=== PATIENT | male | born 1965 | race Caucasian/White ===

== ENCOUNTER 2018-10-04 04:30 | Inpatient (IN) ==
[2018-10-04 05:25] LABS: Basophils # (auto) 0.06 K/uL (0-0.2); Basophils % (auto) 0.7 %; Eosinophils # (auto) 0.25 K/uL (0-0.5); Eosinophils % (auto) 3.1 %; Hematocrit (blood only) 45.1 % (42-52); Hemoglobin 16.2 g/dL (14.0-18.0); Immature Granulocytes # (auto) 0.01 K/uL (0.00-0.02); Immature Granulocytes % (auto) 0.1 %; Lymphocytes # (auto) 3.18 K/uL (1.2-3.4); Lymphocytes % (auto) 38.8 %; Mean Corpuscular Hgb Conc 35.9 g/dL (32-36); Mean Corpuscular Volume 85.1 fL (80-100); Mean Platelet Volume 10.4 fL (7.4-10.4); Monocytes # (auto) 0.67 K/uL (0.11-0.59); Monocytes % (auto) 8.2 %; Neutrophils # (auto) 4.02 K/uL (1.4-6.5); Neutrophils % (auto) 49.1 %; Platelet Count 213 K/uL (130-400); RDW Coefficient of Variation 13.4 % (11.5-14.5); RDW Standard Deviation 41.4 fL (36.4-46.3); White Blood Count 8.19 K/uL (4.8-10.8)
[2018-10-04 05:38] LABS: BUN Creatinine Ratio 12.5 (10-20); Creatinine Clr Calc Pharmacy 68.3 ml/min; Est GFR (African American) 58.3; Est GFR (Non-African American) 50.3; Potassium 2.4 mmol/L (3.5-5.1)
[2018-10-04] MEDS ORDERED: POTASSIUM CHLORIDE / WTR 10 MEQ/100 ML PLCT IV ONE (05:51)
--- NOTE | 2018-10-04 07:29 | Emergency Department Note ---
Entered by Celine Acevedo acting as a scribe for Cherise Clarke DO History of Present Illness General Chief complaint: Neuro Symptoms/Deficit Time Seen by Provider: 10/04/18 04:38 Source: patient Mode of arrival: EMS Limitations: no limitations History of Present Illness Provider complaint: upper body tingling Location: head, chest and abdomen Severity: similar to prior episodes Pain Consistency: + other (persistent) Quality: + other (tingling) Associated symptoms: + other (Associated symptom: upper body cramping) The patient is a 53 year old male who presents to the Emergency Room with complaints of an episode of upper-body tingling beginning 6 hours ago. He reports he experienced this tingling from his waist up, throughout his abdomen, chest, arms, and head. The patient notes he then began experiencing cramping in his upper body, and called an ambulance. His notes she did not notice the patient breathing rapidly at that time. The patient reports he had similar tingling symptoms last week, which resolved on their own after 45 minutes. He notes last week he experienced bilateral leg pain and difficulty moving, and had difficulty going up stairs for about 1.5 days due to pain in the back of his legs. The patient states he has B12 deficiency pernicious anemia, and takes B12 supplements. 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 and A total of 10 systems reviewed and were otherwise negative Physical Exam Vital Signs Vital Signs - 24 hr 10/04/18 04:39 10/04/18 06:31 10/04/18 07:05 Temperature 36.8 C Temperature Source Oral Sepsis Recent Fever Within 48 Hours No Sepsis New/Unexplained Change in Mental Status No Sepsis Action Taken by Nursing No Action Required Pulse Rate 91 H Pulse Rate [Right Finger] 80 84 Pulse Rhythm Regular Pulse Rhythm [Right Finger] Regular Pulse Strength Normal Pulse Strength [Right Finger] Normal Respiratory Rate 21 16 16 Respiratory Effort / Characteristics Non-Labored Non-Labored Respiratory Depth Normal Normal Respiratory Pattern Regular Regular Blood Pressure 159/103 H Blood Pressure [Right Arm] 146/93 H 154/95 H Blood Pressure Mean 121 Blood Pressure Mean [Right Arm] 110 114 Blood Pressure Position Sitting Blood Pressure Position [Right Arm] Lying Pulse Oximetry 98 97 93 Oxygen Delivery Method Room Air Room Air HEENT: Head - normocephalic and atraumatic. Pupils are equal, round, and reactive to light. Extraocular eye muscles are intact and sclera are anicteric. Ears - bilaterally patent canals with noninjected tympanic membranes and no evidence of hemotympanum. Nose - moist nasal mucosa without discharge. Mouth - moist buccal mucosa. Oropharynx is nonerythematous and there is no tonsillar exudate or edema noted. Neck: Supple; no JVD, nuchal rigidity, cervical lymphadenopathy, or auscultated bruits. Heart: Regular rate and rhythm. There is a normal S1 and S2 with no murmurs, clicks, or gallops appreciated. Lungs: Clear to auscultation bilaterally with no wheezes, rales, or rhonchi. Abdomen: Soft, completely nontender, nondistended, with good bowel sounds. There are no palpable pulsatile masses or hepatosplenomegaly. There is no guarding, rigidity, or rebound noted. Extremities: No evidence of cyanosis, clubbing, or edema. There are easily palpable peripheral pulses. Neuro: The patient is awake and alert, oriented to day, time, and place. Muscle strength is 5/5 in all 4 extremities. The patient has equal program scheduler strength and equal pedal push and pull. There are no cerebellar signs. Cranial nerves 2-12 intact. Course 0459: Patient was evaluated in room A2. A complete history and physical examination was performed. IV lock was established. Labs were drawn as above. While I was examining the patient, the blood pressure cuff inflated on the patient's right arm and he had significant carpopedal spasm in the right hand. This made me more concerned for significant electrolyte abnormality 0551: Ordered Potassium Chloride 10 meq in 100 mls @ 100 mls/hr IV. 0622: Upon reevaluation, the patient is resting. I discussed test results. They verbalized agreement with the treatment plan. He notes he remembers an episode of hypokalemia 15-20 years ago. 0702: I [facility] He will evaluate the patient for further management. Consultations Consultation #1: I [facility] the [facility] He will evaluate the patient for further management. Time: 07:02 Administered Medications Discontinued Medications Potassium Chloride (K Amandeep / Wtr) 10 meq in 100 mls @ 100 mls/hr IV ONE ONE Stop: 10/04/18 06:50 Last Infusion: 10/04/18 06:58 Dose: 0 mls/hr Admin: 10/04/18 05:59 Dose: 100 mls/hr Medical Decision Making Differential Diagnosis Etiologies considered include electrolyte abnormality, thyroid dysfunction, MS, stroke, myasthenia gravis, Guillain-[place] syndrome, anxiety. Medical Records Attestation: I reviewed the patient's medical records. Home Medications Current Medication List: was personally reviewed by me Laboratory Data Attestation: I reviewed the patient's lab results. Result diagrams: 10/04/18 04:39 10/04/18 04:39 Lab Results 10/04/18 10/04/18 Range/Units 04:39 04:39 WBC 8.19 (4.8-10.8) K/uL RBC 5.30 (4.7-6.1) M/uL Hgb 16.2 (14.0-18.0) g/dL Hct 45.1 (42-52) % MCV 85.1 (80-100) fL MCH 30.6 (25-34) pg MCHC 35.9 (32-36) g/dL RDW Std Deviation 41.4 (36.4-46.3) fL RDW Coeff of Lucero 13.4 (11.5-14.5) % Plt Count 213 (130-400) K/uL MPV 10.4 (7.4-10.4) fL Immature Gran % (Auto) 0.1 % Neut % (Auto) 49.1 % Lymph % (Auto) 38.8 % Marinette % (Auto) 8.2 % Eos % (Auto) 3.1 % Baso % (Auto) 0.7 % Immature Gran # (Auto) 0.01 (0.00-0.02) K/uL Neut # (Auto) 4.02 (1.4-6.5) K/uL Lymph # (Auto) 3.18 (1.2-3.4) K/uL Marinette # (Auto) 0.67 H (0.11-0.59) K/uL Eos # (Auto) 0.25 (0-0.5) K/uL Baso # (Auto) 0.06 (0-0.2) K/uL Sodium 144 (136-145) mmol/L Potassium 2.4 L* (3.5-5.1) mmol/L Chloride 111 H (98-107) mmol/L Carbon Dioxide 26 (21-32) mmol/L Anion Gap 7.0 (3-11) BUN 20 H (7-18) mg/dl Creatinine 1.57 H (0.6-1.4) mg/dl Est Cr Clr Drug Dosing 68.3 ml/min Est GFR ( Amer) 58.3 Est GFR (Non-Af Amer) 50.3 BUN/Creatinine Ratio 12.5 (10-20) Glucose 135 H (70-99) mg/dl Calcium 8.0 L (8.5-10.1) mg/dl TSH 2.950 (0.300-4.500) uIu/ml ECG Data Attestation: I personally reviewed and interpreted this ECG as follows: Indication: other (hypokalemia) Rate (beats per minute): 88 Rhythm: normal sinus Findings: no PAC, no PVC, no ST depression and no ST elevation Blood Pressure Blood Pressure Findings: Elevated blood pressure Blood Pressure Disposition: further management by hospitalist DARIO Narrative The patient is a 53 year old male who presents to the Emergency Room with complaints of an episode of upper-body tingling beginning 6 hours ago. The patient describes a similar episode a couple of days ago which resolved on its own. He also had an episode of extreme pain in his lower legs which prevented him from standing up or walking upstairs. This also occurred couple days ago. Other than these 2 episodes, the patient states that he has been feeling fine. He has been eating and drinking normally. On laboratory testing , the patient had significant hypokalemia with a potassium of 2.4. Patient does describe a history of this approximately 20 years ago when he had a very similar episode. He does have a history of previous avascular necrosis and pernicious anemia but no other significant health problems. I discussed the case with the [facility] Hospitalist and they will evaluate for further management. He is currently receiving IV potassium supplementation Impression & Plan Hypokalemia Discharge Plan Visit Data Chief Complaint: Neuro Symptoms/Deficit ED Provider: Cherise Clarke Discharge Problem: Hypokalemia Patient Disposition: Being Evaluated by Hospitalist Forms Stand Alone Forms: My [facility] Prescriptions Prescriptions: No Action cyanocobalamin (vitamin B-12) [Vitamin B-12] 1,000 mcg Tablet 1,000 mcg PO DAILY RF: 0 Referrals Referrals: PCP,NO [Primary Care Provider] - The scribe's documentation has been prepared under my direction and personally reviewed by me in its entirety. I confirm that the note above accurately reflects all work, treatment, procedures, and medical decision making performed by me.
[2018-10-04] MEDS ORDERED: MAGNESIUM OXIDE 400 MG TAB PO STA (08:05)
[2018-10-04] MEDS ORDERED: MAGNESIUM SULFATE / D5W 1 GM/100 ML BAG IV ONE ×3 (08:05→21:30)
[2018-10-04] MEDS ORDERED: POTASSIUM CHLORIDE 20 MEQ TABCR PO STA ×2 (08:05→15:43)
[2018-10-04] MEDS ORDERED: MAGNESIUM OXIDE 400 MG TAB ONE (08:14)
[2018-10-04] MEDS ORDERED: POTASSIUM CHLORIDE 10 MEQ TABCR PO ONE (08:15)
--- NOTE | 2018-10-04 08:37 | History & Physical Report ---
Date of Service October 04, 2018 Assessment & Plan (1) Hypokalemia: Hypokalemia -serum potassium 2.4 on admission -received 10 meq of IV potassium in the ED -will give potassium 40 meq in the ED -when on telemetry moeller will continue to give oral and IV potassium supplements based on repeated lab draws to target potassium of 3.5 to 4 -will need to correct concurrent hypomagnesemia too to facilitate serum potassium repletion (2) Hypomagnesemia: Hypomagnesemia -admission magnesium 1.3 -hypomagnesemia is likely the cause of neurological symptoms of upper body tingling -will give magnesium 400 mg oral in the ED and continue with daily or BID oral magnesium supplements, will also give magnesium IV while in the ED awaiting transfer to telemetry moeller -will give additional oral and IV magnesium to based on repeated lab draws to target magnesium level of 2 Neurological symptoms -tingling above the waist (face, upper arms) are likely from electrolyte abnormalities from hypomagnesemia as above Chronic loose stools -patient reports chronic loose stools since young age because of shortened bowels -may be the cause of current admission hypokalemia and hypomagnesemia -will monitor Takes Vitamin B12 at home -unlikely to have acute B12 deficiency given that patient takes B12 supplements at home -will check vitamin B12 levels on this admission Renal -Creatinine 1.52, unclear whether this is acute kidney injury or chronic kidney disease -while correcting electrolyes, will also repeat renal function and consider addition of IV fluids based on repeated labs DVT ppx Lovenox Disposition: admission to telemetry Code Status: Full Code Josephine [phone] Patient from [facility] in [place] n the past has followed with [facility] which is [facility] of [facility] History of Present Illness Primary Care Provider: NO PCP 53 year old M who is from [facility] who in the past has followed with [facility] which is part of [facility] , last had blood work drawn by employer around January 2018 as per patient, who 1 week ago had tingling sensations of upper body which self resolved without further interventional or medical followup, who came to [facility] recently to watch a basketball game, when at hotel at night again developing more tingling sensations above the waist. Reported feeling generalized tingling sensations of the face, jaw, arms. On review of systems: denies recent fevers, denies headaches, denies vomiting, denies changes in appetite,reports he is eating normally, denies deep abdominal discomfort, reports chronic loose stools which is normal for him Patient only reports home medication of vitamin B12 in recent past. In the ED found to have hypokalemia of 2.4 and hypomagnesemia of 1.3. EKG with sinus rhythm Patient was given 1 potassium rider of 10 meq. When assessed by hospitalist, patient reports that tingling sensations have generally resolved. Allergies: denies history of allergies but reports that penicillin or pencillin derivatives makes him feel gassy Family history: Father with history of prostate cancer, Mother with family of breast cancer Allergies Allergy/AdvReac Type Severity Reaction Status Date / Time No Known Allergies Allergy Unverified 10/04/18 06:36 Home Medications Home Medications Medication Instructions Recorded Confirmed Type cyanocobalamin (vitamin B-12) 1,000 mcg PO DAILY 10/04/18 10/04/18 History [Vitamin B-12] Past Med/Surg History Medical History AVN (avascular necrosis of bone) Kidney stone Pernicious anemia Surgical History History of ankle surgery Family History Grandmother Multiple sclerosis Social History Current Living Situation: Spouse and Family current occupational status: employed 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 Other Information That Helps Us Care for You: No Feels Safe at Home: Yes Safety Concerns: Feels Safe At This Time Smoking Status: Never smoker Hx Alcohol Use: No Hx Substance Use: No Beliefs That Will Affect Care: None Preferred Language: Luxembourger Communication Ability: Effective Review of Systems All systems reviewed & are unremarkable except as noted in HPI & below Physical Exam 2 Vital Signs (Past 24 Hours): Last Vital Signs Temp 36.8 C 10/04/18 04:39 Pulse 84 10/04/18 07:05 Resp 16 10/04/18 07:05 BP 154/95 H 10/04/18 07:05 Pulse Ox 93 10/04/18 07:05 Constitutional: WD/WN, vitals as above Eyes: PERRL, conjunctivae normal, anicteric sclerae EOM intact bilaterally ENMT: external ear and nose normal, oropharynx normal Neck: normal visual inspection and trachea midline Respiratory: normal respiratory effort, lungs clear to auscultation Cardiovascular: RRR, no murmur, no edema Gastrointestinal (Abdomen): normal bowel sounds, soft, nontender, no hepatosplenomegaly Musculoskeletal: no cyanosis or clubbing, extremities motor strength 5/5 Head/Neck/Chest: normocephalic and head atraumatic Neurologic: PERRL, EOMI, accommodation nl, no face palsy, no dysarthria CN' s II-XI intact bilaterally Psychiatric: A+Ox3, euthymic affect
[2018-10-04] MEDS: POTASSIUM CHLORIDE / WTR 10 MEQ/100 ML PLCT IV SCH ×7 (10:51→23:56)
[2018-10-04] MEDS: CYANOCOBALAMIN 500 MCG TABLET (VITAMIN B-12) PO SCH (10:58)
[2018-10-04] MEDS: MAGNESIUM OXIDE 400 MG TAB PO SCH ×2 (10:58→19:28)
[2018-10-04 11:05] LABS: INR 1.1 (0.9-1.1); Prothrombin Time 11.3 Seconds (9.0-12.0)
[2018-10-04 11:24] LABS: BUN Creatinine Ratio 11.3 (10-20); Creatinine Clr Calc Pharmacy 71.5 ml/min; Est GFR (African American) 61.6; Est GFR (Non-African American) 53.1; Magnesium 1.5 mg/dl (1.8-2.4)
[2018-10-04 11:27] LABS: Potassium 2.5 mmol/L (3.5-5.1)
[2018-10-04] MEDS: ENOXAPARIN INJ 40 MG/0.4 ML SYR SQ SCH (12:19)
[2018-10-04 15:28] LABS: BUN Creatinine Ratio 10.1 (10-20); Calcium 7.6 mg/dl (8.5-10.1); Creatinine Clr Calc Pharmacy 68.3 ml/min; Est GFR (African American) 58.3; Est GFR (Non-African American) 50.3; Magnesium 1.8 mg/dl (1.8-2.4); Potassium 2.6 mmol/L (3.5-5.1)
[2018-10-04] MEDS ORDERED: POTASSIUM CHLORIDE 10 MEQ in D5W AND 1/2NSS 1,000 ML IV SCH (15:45)
[2018-10-04 20:40] LABS: BUN Creatinine Ratio 8.5 (10-20); Calcium 7.5 mg/dl (8.5-10.1); Creatinine Clr Calc Pharmacy 63.1 ml/min; Est GFR (African American) 52.9; Est GFR (Non-African American) 45.7; Magnesium 1.7 mg/dl (1.8-2.4); Potassium 2.5 mmol/L (3.5-5.1)
[2018-10-04] MEDS ORDERED: CYANOCOBALAMIN 1000 MCG/ML VIAL IM STA (20:54)
[2018-10-04] MEDS ORDERED: D5W AND 1/2NSS + 20MEQ KCL 20 MEQ/1,000 ML BAG IV SCH (22:15)
[2018-10-05] MEDS: POTASSIUM CHLORIDE / WTR 10 MEQ/100 ML PLCT IV SCH ×3 (01:27→06:22)
[2018-10-05 04:18] LABS: Basophils # (auto) 0.05 K/uL (0-0.2); Basophils % (auto) 0.7 %; Eosinophils # (auto) 0.21 K/uL (0-0.5); Eosinophils % (auto) 2.8 %; Hematocrit (blood only) 41.4 % (42-52); Hemoglobin 14.6 g/dL (14.0-18.0); Immature Granulocytes # (auto) 0.01 K/uL (0.00-0.02); Immature Granulocytes % (auto) 0.1 %; Lymphocytes # (auto) 2.71 K/uL (1.2-3.4); Lymphocytes % (auto) 35.8 %; Mean Corpuscular Hgb Conc 35.3 g/dL (32-36); Mean Corpuscular Volume 85.9 fL (80-100); Mean Platelet Volume 9.8 fL (7.4-10.4); Monocytes # (auto) 0.76 K/uL (0.11-0.59); Neutrophils # (auto) 3.84 K/uL (1.4-6.5); Neutrophils % (auto) 50.6 %; Platelet Count 173 K/uL (130-400); RDW Coefficient of Variation 13.4 % (11.5-14.5); RDW Standard Deviation 41.9 fL (36.4-46.3); Red Blood Count 4.82 M/uL (4.7-6.1); White Blood Count 7.58 K/uL (4.8-10.8)
[2018-10-05 04:35] LABS: Creatinine Clr Calc Pharmacy 78.9 ml/min; Est GFR (African American) 69.3; Est GFR (Non-African American) 59.8; Magnesium 1.9 mg/dl (1.8-2.4); Potassium 2.8 mmol/L (3.5-5.1)
[2018-10-05] MEDS ORDERED: POTASSIUM CHLORIDE 10 MEQ TABCR PO STA (04:41)
[2018-10-05 04:46] LABS: Globulin 3.1 gm/dl (2.5-4.0); T4 Free Thyroxine 1.03 ng/dl (0.8-1.6); Total Protein 6.1 gm/dl (6.4-8.2)
[2018-10-05] MEDS: ACETAMINOPHEN 325 MG TAB PO PRN (05:26)
[2018-10-05] MEDS: MAGNESIUM OXIDE 400 MG TAB PO SCH ×2 (07:39→19:31)
[2018-10-05] MEDS: CYANOCOBALAMIN 500 MCG TABLET (VITAMIN B-12) PO SCH (07:39)
[2018-10-05] MEDS: CALCIUM CARBONATE 500 MG CHEWABLE TAB PO SCH ×2 (10:35→10:36)
[2018-10-05] MEDS: POTASSIUM CHLORIDE 20 MEQ TABCR PO SCH ×3 (10:36→19:32)
[2018-10-05] MEDS: CALCIUM GLUCONATE 10% 1,000 MG in SODIUM CHLORIDE 0.9% 50 ML IV SCH ×2 (10:37→11:55)
--- NOTE | 2018-10-05 10:59 | Nephrology Consultation ---
Date of Consultation October 05, 2018 Assessment & Plan (1) SHASHANK (acute kidney injury): Patient with acute kidney injury. We do not have baseline creatinine but on admission yesterday's creatinine was 1.7 now down to 1.36 after IV fluids. This could have been prerenal azotemia in setting of diarrhea. Patient now appears euvolemic. No need for IV fluids. Monitor BMP at least twice daily given electrolyte abnormalities. (2) Hypokalemia: Patient admitted with potassium of 2.4 now has improved to 2.8 after supplementation. Etiology of hypokalemia is likely related to increased GI losses in setting of diarrhea. I have added potassium chloride p.o. 40 mEq 3 times daily. Will repeat potassium around lunchtime. Patient might require additional potassium. He will also need to take potassium supplements at home. I suggest 40 mEq p.o. 3 times daily at home with repeat blood test towards the end of the week. Patient will need nephrology follow-up if discharged. I have asked him to increase his potassium intake at home including using salt substitute for cooking and foods which are high in potassium. (3) Hypomagnesemia: Likely due to reduced absorption in setting of pernicious anemia and prior bowel surgery. Continue p.o. magnesium oxide 400 mg p.o. twice daily (4) Hypocalcemia: Patient with hypocalcemia also likely due to reduced GI absorption. Recommend Tums 1 g daily. History of Present Illness Reason for Consultation: Hypokalemia and hypocalcemia Requesting Physician: Ida Price MD Attending Physician: Vinita Hall DO History of Present Illness This is a 53-year-old male with history of nephrolithiasis, recurrent kidney infections as a child, pernicious anemia on B12 injections and possibly CKD per patient report who was admitted on 10/04/2018 with tingling and cramping in his fingers found to have severe hypokalemia and hypocalcemia. Patient reports similar symptoms about a week ago which resolved and did not seek medical attention. Patient reportedly had reduced kidney function during improvement physical exam but does not recall specifics of the blood tests. Patient is visiting from [place] and had come here to attend a basketball game with family. Patient was staying in a hotel. He denies alcohol or drug use. He is not on diuretics. He reports regular diet but limits diarrhea due to bloating. 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 He also has pernicious anemia. He reports loose stools about 4 bowel movements daily. This morning he feels better but still has some intermittent cramping. He denies any urinary symptoms or shortness of breath. 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 Other Information That Helps Us Care for You: No Feels Safe at Home: Yes Safety Concerns: Feels Safe At This Time Smoking Status: Never smoker Hx Alcohol Use: No Hx Substance Use: No Beliefs That Will Affect Care: None Preferred Language: Citizen Of [place] Communication Ability: Effective Review of Systems All other systems were reviewed and negative except as noted in HPI Physical Exam 2 Vital Signs (Past 24 Hours): Last Vital Signs Temp 36.5 C 10/05/18 07:51 Pulse 89 10/05/18 07:51 Resp 19 10/05/18 07:51 BP 134/92 10/05/18 07:51 Pulse Ox 94 10/05/18 08:36 Physical Exam: General exam: Appears comfortable, no acute distress HEENT: Pupils are equal and reactive to light Neck: No JVD, neck is supple trachea is midline Respiratory system: Clear breath sounds bilaterally. Gastrointestinal: Abdomen is soft, non distended, non tender, bowel sounds are present CVS: Regular rate and rhythm. No murmurs, rubs or gallops Musculoskeletal: No joint or muscle tenderness Extremities: Non tender, no edema, peripheral pulses are present Neuro: Oriented, no tremors, no focal neurological deficits Skin: No rashes Results & Data Laboratory Results Reviewed including potassium of 2.8 and creatinine of 1.36.
[2018-10-05] MEDS: ENOXAPARIN INJ 40 MG/0.4 ML SYR SQ SCH (12:08)
--- NOTE | 2018-10-05 13:02 | Hospitalist Progress Note ---
Date of Service October 05, 2018 Assessment & Plan (1) B12 deficiency: Paresthesias likely secondary to symptomatic B12 deficiency. Patient notes primary care doctor switched him from parenteral B12 supplementation to oral proximally 1-2 years ago. He also reports recent changes in his bowels. B12 level currently 194. Continue with IM supplementation daily for the next week with close follow-up with primary care doctor as outpatient. (2) Hypokalemia: Hypokalemia likely related to changes in bowels over the last couple of weeks. Patient has chronic diarrhea likely contributing, and there are no baseline labs available for review. Repletion of magnesium is important. Continue to replete stores and ensure stability prior to discharge. Appreciate nephrology recommendations. Likely will continue potassium supplementation at discharge. (3) Hypomagnesemia: Replete stores. Mag level this morning is 1.9. Continue p.o. twice daily supplementation. (4) Hypocalcemia: He does report perioral numbness last week. Some fasciculations are present in muscles of fingers and hands today. Corrected calcium is approximately 7.5. Gave 2 g IV calcium today and will continue 1 g of times daily per nephrology recommendations. 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 (6) SHASHANK (acute kidney injury): No baseline, creatinine improved with fluids. Trend in a.m. Appreciate nephrology recommendations. (7) DVT prophylaxis: Lovenox daily Full code Disposition-expect home once medically stable in next few days. Will keep on telemetry while repleting potassium at higher doses. Vinita Hall DO [facility] hospitalist Subjective 53-year-old man with pernicious anemia and chronic GI losses presents with paresthesias that are symmetric involving upper body including bilateral arms. He reports having another episode of this for 45 minutes this morning which resolved spontaneously. B12 level returned at 194 this morning despite oral supplementation at home. Patient reports that his primary care doctor switched him from IM to oral supplementation because of good levels a proximally 1-2 years ago. Patient reports being on iron supplementation and lifelong prior to this aside from one episode 10 years ago where he was switched to oral supplementation and had similar symptoms. He is also reporting fasciculations in his hands and cramping of his hands. He is tolerating p.o. and mentating normally. He has no other issues at this time. Physical Exam 2 Vital Signs (Past 24 Hours): Last Vital Signs Temp 36.7 C 10/05/18 11:01 Pulse 79 10/05/18 11:01 Resp 18 10/05/18 11:01 BP 136/91 10/05/18 11:01 Pulse Ox 94 10/05/18 11:01 CONSTITUTIONAL: WNWD, vitals as above, generally well-appearing EYES: normal conjuctivae, no scleral icterus ENT: MMM RESPIRATORY: clear to auscultation bilaterally, no crackles, rales or wheezes, normal respiratory effort CARDIOVASCULAR: regular rate and rhythm, S1 and 2 heard without murmurs, gallops or rubs, no peripheral edema GASTROINTESTINAL: normal bowel sounds, soft, nontender, nondistended, no guarding MUSCULOSKELETAL: Fasciculations noted in bilateral hands. Range of motion of fingers is normal but patient has obvious distress from cramping in hands. Strength 5/5 throughout, head is normocephalic and atraumatic SKIN: warm and dry NEUROLOGIC: Some sensation deficits in fingertips bilaterally. CN 2-12 grossly intact, normal cognition, normal speech PSYCHIATRIC: alert cooperative and oriented to person, place and time. Euthymic mood, makes good eye contact, language grossly intact Results & Data Laboratory Results Short CBC 10/05/18 Range/Units 04:08 WBC 7.58 (4.8-10.8) K/uL Hgb 14.6 (14.0-18.0) g/dL Hct 41.4 L (42-52) % Plt Count 173 (130-400) K/uL BMP 10/04/18 10/04/18 10/05/18 14:56 19:55 04:08 Sodium 145 144 144 Potassium 2.6 L 2.5 L* 2.8 L Chloride 110 H 108 H 109 H Carbon Dioxide 29 30 30 BUN 16 15 14 Creatinine 1.57 H 1.70 H 1.36 D Glucose 96 106 H 98 Calcium 7.6 L 7.5 L 7.0 L Liver Function 10/05/18 Range/Units 04:08 Total Bilirubin 1.0 (0.2-1) mg/dl AST 33 (15-37) U/L ALT 43 (12-78) U/L Alkaline Phosphatase 57 (45-117) U/L Albumin 3.0 L (3.4-5.0) gm/dl Medications Administered Current Inpatient Medications Acetaminophen (Tylenol) 650 mg PO Q6H PRN PRN Reason: Pain or Fever Stop: 11/04/18 05:12 Last Admin: 10/05/18 05:26 Dose: 650 mg Calcium Carbonate (Tums) 1,000 mg PO DAILY [facility] Stop: 11/04/18 09:59 Last Admin: 10/05/18 10:36 Dose: 1,000 mg Cyanocobalamin (Vitamin B-12) 1,000 mcg IM DAILY [facility] Stop: 11/04/18 08:59 Enoxaparin Sodium (Lovenox) 40 mg SQ Q24H [facility] Stop: 11/03/18 11:59 Last Admin: 10/05/18 12:08 Dose: 40 mg Magnesium Oxide (Mag-Ox) 400 mg PO BID [facility] Stop: 11/03/18 10:15 Last Admin: 10/05/18 07:39 Dose: 400 mg Potassium Chloride (Klor-Con M20) 40 meq PO TID [facility] Stop: 11/04/18 09:49 Last Admin: 10/05/18 10:36 Dose: 40 meq
[2018-10-05 13:16] LABS: BUN Creatinine Ratio 8.1 (10-20); Creatinine Clr Calc Pharmacy 80.1 ml/min; Est GFR (African American) 70.6; Est GFR (Non-African American) 60.9
[2018-10-05] MEDS: CYANOCOBALAMIN 1000 MCG/ML VIAL IM SCH (15:06)
[2018-10-06] MEDS: ACETAMINOPHEN 325 MG TAB PO PRN (02:41)
[2018-10-06 07:03] LABS: Albumin Level 3.1 gm/dl (3.4-5.0); BUN Creatinine Ratio 7.8 (10-20); Calcium 7.6 mg/dl (8.5-10.1); Creatinine Clr Calc Pharmacy 87.2 ml/min; Est GFR (African American) 78.3; Est GFR (Non-African American) 67.6; Magnesium 2.1 mg/dl (1.8-2.4); Potassium 3.2 mmol/L (3.5-5.1)
[2018-10-06 07:13] LABS: Phosphorus 1.5 mg/dl (2.5-4.9)
[2018-10-06] MEDS: MAGNESIUM OXIDE 400 MG TAB PO SCH (07:46)
[2018-10-06] MEDS: POTASSIUM CHLORIDE 20 MEQ TABCR PO SCH ×2 (07:47→14:20)
[2018-10-06] MEDS: CALCIUM CARBONATE 500 MG CHEWABLE TAB PO SCH (07:47)
[2018-10-06] MEDS: CYANOCOBALAMIN 1000 MCG/ML VIAL IM SCH (07:48)
[2018-10-06] MEDS ORDERED: POTASSIUM PHOS 3 MMOL/1 ML INFUSION IV STA (08:03)
[2018-10-06] MEDS ORDERED: POTASSIUM PHOSPHATE 30 MMOL in SODIUM CHLORIDE 0.9% 500 ML IV ONE (08:30)
[2018-10-06] MEDS ORDERED: CALCIUM CARBONATE 500 MG CHEWABLE TAB PO SCH (09:00)
--- NOTE | 2018-10-06 10:15 | Nephrology Progress Note ---
Date of Service October 06, 2018 Assessment & Plan (1) SHASHANK (acute kidney injury): Patient with acute kidney injury. We do not have baseline creatinine but on admission yesterday's creatinine was 1.7 now down to 1.2 after IV fluids. This could have been prerenal azotemia in setting of diarrhea. Patient now appears euvolemic. No need for IV fluids. Monitor BMP at least twice daily given electrolyte abnormalities. If patient is discharged today, he will need renal follow-up in a week. (2) Hypokalemia: Patient admitted with potassium of 2.4 now has improved to 3.2 after supplementation. Etiology of hypokalemia is likely related to increased GI losses in setting of diarrhea. Continue potassium chloride p.o. 40 mEq 3 times daily. Patient can be discharged on potassium chloride 40 mEq 3 times daily. I suggest repeat blood test towards the end of the week. Patient will need nephrology follow-up if discharged. I have asked him to increase his potassium intake at home including using salt substitute for cooking and foods which are high in potassium. (3) Hypomagnesemia: Likely due to reduced absorption in setting of pernicious anemia and prior bowel surgery. Continue p.o. magnesium oxide 400 mg p.o. twice daily (4) Hypocalcemia: Patient with hypocalcemia also likely due to reduced GI absorption. Increase Tums 1 g twice daily and patient can be discharged on the same dose.. (5) Hypophosphatemia: Likely due to reduced phosphate absorption. Recommend potassium phosphate 40 mEq daily. Patient can continue same dose at home. Will also check vitamin D levels. Subjective Patient feels better today. He denies any abdominal pain or vomiting. No numbness or tingling. Potassium is better at 3.2. Creatinine is downtrending at 1.2. Review of Systems All systems reviewed & are unremarkable except as noted in HPI & below Physical Exam 2 Vital Signs (Past 24 Hours): Last Vital Signs Temp 36.7 C 10/06/18 07:34 Pulse 80 10/06/18 07:34 Resp 18 10/06/18 07:34 BP 126/78 10/06/18 07:34 Pulse Ox 94 10/06/18 07:34 Physical Exam: General exam: Appears comfortable, no acute distress HEENT: Pupils are equal and reactive to light Neck: No JVD, neck is supple trachea is midline Respiratory system: Clear breath sounds bilaterally. Gastrointestinal: Abdomen is soft, non distended, non tender, bowel sounds are present CVS: Regular rate and rhythm. No murmurs, rubs or gallops Musculoskeletal: No joint or muscle tenderness Extremities: Non tender, no edema, peripheral pulses are present Neuro: Oriented, no tremors, no focal neurological deficits Skin: No rashes Results & Data Laboratory Results Reviewed including creatinine of 1.2, potassium of 3.2 and phosphorus of 1.5
[2018-10-06] MEDS: ENOXAPARIN INJ 40 MG/0.4 ML SYR SQ SCH (11:09)
[2018-10-06] MEDS ORDERED: ERGOCALCIFEROL 50,000 UNITS CAP PO SCH (12:45)
--- NOTE | 2018-10-16 10:35 | Discharge Summary ---
Date of Service October 16, 2018 Admission HPI Per Admitting Provider 53 year old M who is from [facility] who in the past has followed with [facility] which is [facility] of [facility] , last had blood work drawn by employer around January 2018 as per patient, who 1 week ago had tingling sensations of upper body which self resolved without further interventional or medical followup, who came to [facility] recently to watch a basketball game, when at hotel at night again developing more tingling sensations above the waist. Reported feeling generalized tingling sensations of the face, jaw, arms. On review of systems: denies recent fevers, denies headaches, denies vomiting, denies changes in appetite,reports he is eating normally, denies deep abdominal discomfort, reports chronic loose stools which is normal for him Patient only reports home medication of vitamin B12 in recent past. In the ED found to have hypokalemia of 2.4 and hypomagnesemia of 1.3. EKG with sinus rhythm Patient was given 1 potassium rider of 10 meq. When assessed by hospitalist, patient reports that tingling sensations have generally resolved. Allergies: denies history of allergies but reports that penicillin or pencillin derivatives makes him feel gassy Family history: Father with history of prostate cancer, Mother with family of breast cancer Admission Exam Per Admitting Provider WD/WN, vitals as above Eyes: PERRL, conjunctivae normal, anicteric sclerae EOM intact bilaterally ENMT: external ear and nose normal, oropharynx normal Neck: normal visual inspection and trachea midline Respiratory: normal respiratory effort, lungs clear to auscultation Cardiovascular: RRR, no murmur, no edema Gastrointestinal (Abdomen): normal bowel sounds, soft, nontender, no hepatosplenomegaly Musculoskeletal: no cyanosis or clubbing, extremities motor strength 5/5 Head/ Neck/Chest: normocephalic and head atraumatic Neurologic: PERRL, EOMI, accommodation nl, no face palsy, no dysarthria CN's II-XI intact bilaterally Psychiatric: A+Ox3, euthymic affect Principal Diagnosis Symptomatic B12 deficiency w h/o pernicious anemia multiple electrolyte abnormalities 2/2 chronic GI loss Discharge Exam CONSTITUTIONAL: WNWD, vitals as above, generally well-appearing EYES: normal conjuctivae, no scleral icterus ENT: MMM RESPIRATORY: clear to auscultation bilaterally, no crackles, rales or wheezes, normal respiratory effort CARDIOVASCULAR: regular rate and rhythm, S1 and 2 heard without murmurs, gallops or rubs, no peripheral edema GASTROINTESTINAL: normal bowel sounds, soft, nontender, nondistended, no guarding MUSCULOSKELETAL: Range of motion of fingers is normal, fasciculations have improved. Strength 5/5 throughout, head is normocephalic and atraumatic SKIN: warm and dry NEUROLOGIC: Some sensation deficits in fingertips bilaterally. CN 2-12 grossly intact, normal cognition, normal speech PSYCHIATRIC: alert cooperative and oriented to person, place and time. Euthymic mood, makes good eye contact, language grossly intact Discharge Data Allergies Allergy/AdvReac Type Severity Reaction Status Date / Time No Known Allergies Allergy Unverified 10/04/18 06:36 Consultations 10/05/18 08:00 Consult Nephrology Routine Hospital Course (1) B12 deficiency: (2) Hypokalemia: (3) Hypomagnesemia: (4) Hypocalcemia: (5) Chronic diarrhea: (6) SHASHANK (acute kidney injury): 53-year-old man with pernicious anemia presents to the emergency room reports of upper body tingling for 6 hours consistently. The tingling was from his waist up throughout his abdomen, chest, arms and head and was notably bilateral. He also noted that the prior week he had experienced difficulty moving for instance going upstairs due to pain in the back of his legs. He reported to have switched to oral B12 supplements from parenteral B12 supplementation proximally 1-2 years ago by his primary care doctor. Since that time he has been compliant with supplementation. He also reported to have chronic GI losses in the form of loose stool several times daily. 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 On arrival to the ER he was hemodynamically stable and afebrile oxygenating well on room air. CBC was normal, BMP revealed abnormalities. Potassium was 2.4, BUN was 20, creatinine 1.57. TSH was normal at 2.95. He was admitted to the hospitalist service. Nephrology was consulted. Paresthesias were thought secondary to symptomatic B12 deficiency when B12 level came back at 194. They reoccurred again on HD2 and were not associated with any focal neurologic deficits. Potassium was replaced and magnesium was found to be low at 1.3. This was also replaced. Phosphorus was found to be low at 1.5 and was replaced. Vitamin D was found to be low at 14.5 and replacement was started. IV calcium was also given. He was given IV fluids for his acute kidney injury with improvement. This was thought to be prerenal azotemia in the setting of diarrhea. He was euvolemic at discharge. Ultimately hypokalemia was thought to be secondary of increased GI losses in the setting. Hypomagnesemia was likely due to reduced absorption of the setting of pernicious anemia and prior bowel surgery. Hypercalcemia was likely due to reduced GI absorption as well as hypophosphatemia. He was sent home on multiple supplements to replete electrolytes as well as supplemental vitamin D. At time of discharge she was asymptomatic. He notably was switched back to parenteral B12 replacement on a titration scheduled starting daily for 7 days then weekly for 4 weeks, then per PCP. He was discharged in stable condition. He was from another town and was encouraged to follow-up with primary care doc within a week of discharge. His primary care office was contacted the day after he left and was made aware of his need for parenteral B12 supplementation daily. Total Time Total Time Spent Total Time Spent (In Minutes): 60 Total Time Includes: Examination of the Patient, Discharge Planning, Medication Reconciliation and Communication With Other Providers Discharge Plan Discharge Items Patient Disposition: Home - Self-Care Reason For Visit: R SIDE WEAK Discharge Diagnosis: Symptomatic B12 deficiency w h/o pernicious anemia multiple electrolyte abnormalities 2/2 chronic GI loss Condition: Good Discharge Goals: Improve disease control Activity: Resume your previous activity Non-emergency contact: Primary Care Provider Call non-emergency contact if: you have any medication questions, your symptoms worsen, your pain is not controlled and you have a fever Diet: Regular Addtl Provider Instructions: Please take all medications as instructed on discharge list below. Please separate calcium supplementation and phosphorus supplementation by at least 2 hours. Please continue all supplementation until otherwise instructed by primary care physician. It is recommended that you follow-up with your primary care physician within 1 week of discharge. Of note, you will receive a prescription for lab work to be done on or Friday of this week. You do not have to fast for this blood work. Results should be sent to your primary care physician's office. It is recommended that you follow-up with Nephrology regarding these multiple electrolyte abnormalities. This can be accomplished through a referral from your primary care doctor. It was a pleasure taking care of you! Please call if you have any questions or problems. You can reach a [facility] hospitalist on duty at [facility] 24 hours a day by calling [phone]. Take care of yourself. Vinita Hall, [facility] Hospitalist Prescriptions: New potassium chloride [Klor-Con M20] 20 mEq Tablet,Er Particles/Crystals 40 meq PO TID 30 Days Qty: 180 RF: 0 calcium carbonate [Tums] 200 mg calcium (500 mg) Tablet,Chewable 1,000 mg PO BID 14 Days Qty: 140 RF: 0 magnesium oxide 400 mg (241.3 mg magnesium) Tablet 400 mg PO BID 30 Days Qty: 60 RF: 0 cyanocobalamin (vitamin B-12) 1,000 mcg/mL Solution 1,000 mcg IM DAILY Qty: 25 RF: 0 ergocalciferol (vitamin D2) [Vitamin D2] 50,000 unit Capsule 50,000 unit PO Q7D Qty: 12 RF: 0 sod phos di, mono-K phos mono [Phosphorous] 250 mg tablet 1 tab PO BID 14 Days Qty: 28 RF: 0 Discontinued cyanocobalamin (vitamin B-12) [Vitamin B-12] 1,000 mcg Tablet 1,000 mcg PO DAILY RF: 0 Visit Report Forms: My [facility] Portal Stand-Alone Forms: [facility] Discharge Orders: Discharge Order (Routine); Ordered 10/06/18 Ordered By: Vinita Hall Admission Data Admit Date/Time: 10/04/18 08:15 Attending Provider: Vinita Hall Admit Provider: Ayad Jesus Primary Care Provider: PCP,NO Other Providers: Ortega Alvarado Service: Telemetry Other Interventions: Discharge Summary Assessment (RN) Last Done: 10/06/18 13:47 DC Date/Time DO NOT enter until pt leaves facility: 10/06/18 14:38
--- NOTE | 2018-10-19 07:26 | Coding Query ---
CODING QUERY To promote full compliance with coding requirements relating to patient care, provider participation is requested in all cases of dynamite cartridge crimper uncertainty. Please assist us with the question(s) below: Coding Question(s): 1. Please clarify below, in your clinical opinion, regarding Symptomatic B12 Deficiency with history of Pernicious Anemia. ( x ) There was current Pernicious Anemia (Vitamin B12 deficiency anemia due to intrinsic factor deficiency)-->no outpatient records to confirm this, but it was reported. ( ) History only of Pernicious Anemia - patient had no current Pernicious Anemia and the B12 Deficiency was not Pernicious Anemia 2. There is documentation of Chronic Diarrhea stated to be chronic, lifelong related to bowel surgery as an and documentation of the patient having a shortened bowel as a child and chronic GI losses and reduced absorption of the setting of pernicious anemia and prior bowel surgery. Please clarify below, in your clinical opinion. ( ) Short Bowel Syndrome, Postsurgical or Postsurgical Malabsorption ( ) Short Bowel Syndrome, Unspecified or Intestinal Malabsorption Unspecified ( ) Malabsorption, Unspecified ( x) Other: Please Specify chronic diarrhea with poss malabsorption, uncertain etiology ( ) None of these Physician's Response(s): Thank you Enriqutea Farr Principal Diagnosis: "�that condition established after study, to be chiefly responsible for occasioning the admission of the patient to the hospital for care." Co-Existing Principal Diagnosis: "�when two or more diagnoses equally meet the criteria for principal diagnosis as determined by the circumstances of admission , diagnostic work up, and/or therapy provided, and the Alphabetic Index, Tabular List, or another coding guideline does not provide sequencing direction , any one of the diagnoses may be sequenced first." "When the physician has documented what appears to be a current diagnosis in the body of the record, but has not included the diagnosis in the final diagnostic statement, the physician should be asked whether the diagnosis should be added." (Source [facility]oding [facility] 2 QTR90. p3-4) WANDY
== END 2018-10-06 14:38 | disposition home or self-care (01) ==
LOC: ED 04:30 → SUATTDRO 08:15 → 2S 08:15